=== PATIENT | female | born 2000 | race Caucasian/White ===

== ENCOUNTER 2021-04-07 20:38 | Emergency (ER) | payer MEDICAID, OTHER ==
[~2021-04-07] VITALS: Ht 170.2 cm; Wt 70.3 kg
[2021-04-07] MEDS ORDERED: cefTRIAXone SOD 1,000 MG VL IM ONE (21:00)
[2021-04-07] MEDS ORDERED: methylPREDNISolone SOD SUCC 125 MG/2 ML VL IM ONE (21:00)
[2021-04-07] MEDS ORDERED: ONDANSETRON ODT 4 MG TAB PO ONE (21:00)
[2021-04-07] MEDS ORDERED: LIDOCAINE 1% HCL (LOCAL ANESTH.) INJ 20ML MDV IJ ONE (21:30)
[2021-04-07 22:30] VITALS: BP 125/85
== END 2021-04-07 22:06 | disposition home or self-care (01) ==
LOC: ER 20:38
DX: J03.90 Acute tonsillitis, unspecified (principal); F12.10 Cannabis abuse, uncomplicated
CPT/HCPCS: 96372; 99284; J0696; J2001; J2930; Q0162